=== PATIENT | male | born 1950 | race Caucasian/White ===

== ENCOUNTER 2018-12-09 08:42 | Outpatient (CLI) | payer MEDICARE, BC ==
[2018-12-09] MEDS ORDERED: Gadobenate Dimeglumine 529 MG/1 ML (20ML VIAL) ONE (09:00)
--- NOTE | 2018-12-09 10:45 | MRI ---
LUMBAR SPINE MRI WITHOUT AND WITH CONTRAST: DATE: 12/09/2018. COMPARISON: 08/20/2014. HISTORY: Lumbar radiculopathy, lumbar spondylosis with myelopathy. TECHNIQUE: Multiplanar multisequence MR imaging of the lumbar spine obtained with and without contrast. FINDINGS: The sagittal STIR imaging demonstrates no focal area of osseous marrow edema. No significant anterolisthesis or retrolisthesis is noted within the lumbar spine. On the basis of 5 lumbar type vertebral bodies, the conus medullaris terminates at the T12-L1 level. T12-L1: Mild disc bulge. Mild bilateral facet hypertrophy. No significant central canal or neural for aminal stenosis. L1-2: There is disc desiccation, anterior osteophyte formation, and disc bulge with superimposed smal l right paracentral disc protrusion. Mild bilateral facet hypertrophy. No significant central canal or neural foraminal stenosis. L2-3: There is disc space narrowing and disc desiccation with anterior osteophyte formation and mild disc bulge. There is bilateral facet hypertrophy, left greater than right. There is mild central canal stenosis with moderate left lateral recess stenosis. There is mild/moderate left neural foramin al stenosis. Posterior to the L3 vertebral body there is an anterior right paracentral epidural mass measuring 1.4 cm AP dimension, 1.9 cm craniocaudal dimension, and 1.2 cm AP dimension. This is felt to represent a large extruded disc fragment, likely emanating from the L2-3 intervertebral disc as there appears t o be a thin linear area of continuity with the L2-3 disc best seen on sagittal image 9. Secondary to the anterior epidural mass there is severe central canal stenosis/left lateral recess st enosis posterior to the L3 vertebral body. L3-4: There is significant bilateral facet hypertrophy, left greater than right. There is disc space narrowing, disc desiccation, and disc bulge present. There is moderate bilateral neural foraminal stenosis, right greater than left, and moderate central canal stenosis. L4-5: Bilateral facet hypertrophy. There is disc space narrowing and disc desiccation with mild disc bulge. There is mild/moderate left neural foraminal stenosis and mild/moderate central canal stenosis. L5-S1: Bilateral facet hypertrophy. There is disc space narrowing, disc desiccation, and disc osteoph yte complex with mild/moderate central canal stenosis. Mild bilateral neural foraminal stenosis noted. Review of the retroperitoneal structures demonstrates no acute findings. Postcontrast imaging demonstrates rim enhancement of the above-described anterior epidural mass poste rior to the L3 vertebral body. There is no abnormal enhancement involving the nerve roots of the cauda equina. No abnormal enhancement is seen involving the intervertebral discs or imaged osseous st ructures. IMPRESSION: Multilevel degenerative change noted throughout the lumbar spine as detailed above. There is an anter ior epidural mass lesion posterior to the L3 vertebral body to the right of midline causing severe central canal stenosis/right lateral recess stenosis. This suggests a large disc extrusion emanating from the L2-3 level. Transcribed Date/Time: 12/09/2018 2:18 PM
== END 2018-12-09 08:43 | disposition home or self-care (01) ==
LOC: SCSMRI 08:42
PROVIDERS: ATTEND Neurological Surgery
DX: M47.16 Other spondylosis with myelopathy, lumbar region (principal); M47.26 Other spondylosis with radiculopathy, lumbar region; M48.061 Spinal stenosis, lumbar region without neurogenic claudication; M89.9 Disorder of bone, unspecified
CPT/HCPCS: 72158; 82565; A9577

== ENCOUNTER 2019-02-10 08:11 | Day surgery (SDC) | payer MEDICARE, BC ==
[2019-02-10 09:49] LABS: #Basophils 0.1 thou/uL (0.0-0.2); #Eosinphils 0.2 thou/uL (0.0-0.7); #Lymphocytes 2.4 thou/uL (1.20-3.40); #Monocytes 0.6 thou/uL (0.11-0.59); #Neutrophils 4.7 thou/uL (1.40-6.50); %Basophils 1.1 % (0.0-1.0); %Eosinophils 2.3 % (0.0-10.0); %Lymphocytes 29.9 % (21.0-51.0); %Monocytes 7.7 % (0.0-10.0); Hemoglobin 14.5 g/dL (14.0-18.0); Mean Corpuscular HGB CONC 32.5 g/dL (32.0-36.0); Mean Corpuscular Hemoglobin 30.3 pg (27.0-31.0); Mean Corpuscular Volume 93.3 fL (78.0-98.0); Mean Platelet Volume 6.8 fL (7.4-10.4); Platelet Count 213 thou/uL (130-400); Red Blood Cell (RBC) Count 4.79 mill/uL (4.70-6.10); White Blood Cell (WBC) Count 7.9 thou/uL (4.8-10.8)
[2019-02-10 09:59] LABS: Anion Gap 11 mmol/L (10-20); BUN (Urea Nitrogen) 23 mg/dL (8.4-25.7); Calc. Creatinine Clearance 0 mL/min (70-130); Calcium 9.9 mg/dL (7.8-10.44); Carbon Dioxide 27 mmol/L (23-31); Chloride 103 mmol/L (98-107); Estimated GFR-MDRD Greater than 90; Glucose 148 mg/dL (83-110); Potassium 4.3 mmol/L (3.5-5.1); Sodium 137 mmol/L (136-145)
[2019-02-10] MEDS ORDERED: Ketorolac Tromethamine 30 MG/ML VIAL ONE (10:01)
[2019-02-10] MEDS ORDERED: Ondansetron PF 4 MG/2 ML Vial ONE (10:01)
[2019-02-10] MEDS ORDERED: PROPOFOL 200 MG/20 ML VIAL ONE (10:01)
[2019-02-10] MEDS ORDERED: PHENYLEPHRINE-NS 100 MCG/ML 10 ML SYRINGE ONE (10:01)
[2019-02-10] MEDS ORDERED: Dexamethasone 20 MG/5 ML VIAL ONE (10:01)
[2019-02-10] MEDS ORDERED: Glycopyrrolate 0.2 MG/ML 5 ML SYRINGE ONE (10:01)
[2019-02-10] MEDS ORDERED: Rocuronium Bromide 10 MG/ML (10ML VIAL) ONE (10:01)
[2019-02-10] MEDS ORDERED: Lidocaine 1% PF 5 ML VIAL ONE (10:01)
[2019-02-10] MEDS ORDERED: Fentanyl 100 MCG/2 ML VIAL ONE ×2 (12:20→14:11)
[2019-02-10] MEDS ORDERED: Tamsulosin HCl 0.4 MG CAP ONE (14:27)
--- NOTE | 2019-02-10 15:02 | OP ---
DATE OF PROCEDURE: 02/10/2019 MACHINE I COREMAKER: Major Gamez PA-C PROCEDURE PERFORMED: Right L2-3 laminectomy and diskectomy. DESCRIPTION OF PROCEDURE: The patient was brought to the operating room and intubated. He was rolled in prone position on gel-filled chest rolls. The previous incision was reopened and extended superiorly, and the L2 through L4 region was exposed. We started with a central right L2-3 laminectomy and moved this to the right. We then explored the right L2-3 disk space and found the extruded disk herniation beneath and in the axilla of the right L3 nerve root. It appeared that this had originated from L2-3. The disk was debrided and removed in multiple fragments, and a complete decompression was achieved. The wound was extensively irrigated. MAC hemostasis was secured. Vancomycin powder was applied, and the wound was closed in anatomic layers. Job ID: [id number]
[2019-02-10] MEDS ORDERED: HYDROcodone/Acetaminophen 5/325 mg Tablet ONE (15:46)
--- NOTE | 2019-02-12 18:45 | EKG ---
Test Reason : PREOP Blood Pressure : / mmHG Vent. Rate : 080 BPM Atrial Rate : 080 BPM P-R Int : 140 ms QRS Dur : 082 ms QT Int : 352 ms P-R-T Axes : 018 062 044 degrees QTc Int : 405 ms Normal sinus rhythm Normal EKG Confirmed by DR. Ayan FERNANDES ([id number]) on 02/12/2019 6:45:19 PM Referred By: MICAH Confirmed By:DR. Ayan FERNANDES
== END 2019-02-10 17:10 | disposition home or self-care (01) ==
LOC: SDC 08:11
PROVIDERS: ATTEND Neurological Surgery
PROC: 01NB0ZZ Release Lumbar Nerve, Open Approach (ICD-10-PCS; principal; 2019-02-10)
PROC: 0ST20ZZ Resection of Lumbar Vertebral Disc, Open Approach (ICD-10-PCS; 2019-02-10)
DX: M48.061 Spinal stenosis, lumbar region without neurogenic claudication (principal); I10 Essential (primary) hypertension; M51.16 Intervertebral disc disorders with radiculopathy, lumbar region; E11.9 Type 2 diabetes mellitus without complications; Z79.84 Long term (current) use of oral hypoglycemic drugs; Z79.899 Other long term (current) drug therapy
CPT/HCPCS: 36415; 76000; 80048; 85025; 93005; 93010; J0690; J1100; J1885; J2001; J2405; J2704; J3010; J3370

== ENCOUNTER 2020-08-27 10:48 | Outpatient (CLI) | payer MEDICARE, BC | END 2020-08-27 10:49 | disposition home or self-care (01) | LOC: TBSIIMAG 10:48 | PROVIDERS: ATTEND Physician Assistant | DX: M47.26 Other spondylosis with radiculopathy, lumbar region (principal); I70.0 Atherosclerosis of aorta; N20.0 Calculus of kidney; Z98.890 Other specified postprocedural states | CPT/HCPCS: 72100 ==